=== PATIENT | male | born 1950 | race Caucasian/White ===

== ENCOUNTER 2023-02-10 13:17 | Inpatient (IN) | payer MEDICARE, OTHER, MEDICAID, SELFPAY ==
[2023-02-10] VITALS (9 sets, daily range): BP systolic 94–122; BP diastolic 66–85; PULSE 97–124; RESP 15–20; TEMP 36.4–36.6; O2SAT 95–100
--- NOTE | ~2023-02-10 | CT_ITS ---
EXAMINATION: CT abdomen pelvis w con DATE: 02/10/2023 15:59 INDICATION: Abdominal pain TECHNIQUE: Computed tomography (CT) of the abdomen and pelvis was performed with 100 cc Omnipaque 350 intravenous contrast. The dose-length product was 1561.69 mGy-cm. Automated exposure control and ite rative reconstruction technique were employed. COMPARISON: CT dated 03/10/2018. FINDINGS: Lung bases are unremarkable. There is extensive bilateral pulmonary embolism with large cintia t burden involving the main and lobar pulmonary arteries. No significant pleural or pericardial effus ion. There is a laparoscopic adjustable gastric band. Fatty infiltration of the liver. The spleen, pa ncreas, adrenal glands are unremarkable. There is bilateral renal cortical thinning. There are bilate ral renal cysts, largest in the right kidney measuring 3.3 cm. Status post cholecystectomy. There is atherosclerosis of the aorta without aneurysm. Nonobstructive bowel gas pattern. Moderate retained fe césar material in the distal colon and rectum with fecal impaction of the rectum. No lymphadenopathy. N o free air or free fluid. 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 There is severe thoracic and lumbar spondylosis. Small amount of ascites in the upper abdomen. IMPRESSION: 1. Bilateral pulmonary embolism, large thrombus burden. 2: Fecal impaction of the rectum. Dr. Sabas Alanis discussed with Dr. Maykel Bhatt MD at 02/10/2023 16:15 CDT. Reviewed, dictated and finalized at location B.
--- NOTE | ~2023-02-10 | XR_ITS ---
EXAMINATION: XR chest 1V portable DATE: 02/10/2023 14:13 INDICATION: Shortness of breath. TECHNIQUE: A single frontal view of the chest was obtained. COMPARISON: Chest 2 views 08/01/2015, CT abdomen and pelvis 03/10/2018 FINDINGS: There is no pneumonia, pleural effusion, or pneumothorax. The heart size is normal. Median sternotomy wires are noted. IMPRESSION: 1. No acute cardiopulmonary disease. Reviewed, dictated and finalized at location A.
--- NOTE | ~2023-02-10 | US_ITS ---
EXAMINATION: US venous doppler [facility] DATE: 02/10/2023 19:09 INDICATION: PE . TECHNIQUE: Grayscale images without and with compression and Doppler images of the bilateral lower ex tremity veins were obtained. COMPARISON: None FINDINGS: Acute DVT is seen in the right distal superficial femoral vein, popliteal vein, and posterior tibial vein. The right common femoral vein, profunda (deep) femoral vein, proximal and mid superficial femor al vein, peroneal vein, gastrocnemius vein, and greater saphenous vein are patent. The left common femoral vein, profunda (deep) femoral vein, femoral vein, popliteal vein, peroneal v ein, posterior tibial veins, gastrocnemius vein, and greater saphenous vein are patent. IMPRESSION: 1. Acute DVT in the right distal superficial femoral, popliteal, and posterior tibial veins. 2. Otherwise patent bilateral lower extremity veins. No evidence of deep venous thrombosis. Reviewed, dictated and finalized at location K.
--- NOTE | ~2023-02-10 | US_ITS ---
EXAMINATION: US abdomen limited DATE: 02/11/2023 09:27 INDICATION: Abnormal liver function tests. TECHNIQUE: Multiple grayscale and Doppler ultrasound images of the abdomen were obtained. COMPARISON: CT abdomen and pelvis 02/10/2023 FINDINGS: The visualized portions of the head and body of the pancreas are normal. The liver is robin l without focal lesion. No liver surface nodularity. There is normal flow in main portal vein. There are changes of cholecystectomy. The common duct is normal and measures 3 mm. IMPRESSION: 1. Normal right upper quadrant ultrasound status post cholecystectomy. Reviewed, dictated and finalized at location A.
--- NOTE | ~2023-02-10 | CT_ITS ---
CT head without contrast Indication: Headache Technique: Serial scans were obtained through the brain without the administration of contrast. Dose reduction technique was used on this scan by utilizing automated exposure control and iterative recon struction technique. The dose-length product (DLP) was 756.67 mGy-cm. Findings: There is no evidence of intracranial hemorrhage, mass lesion, or acute infarct. There is fo césar right frontal lobe encephalomalacia. The ventricles and subarachnoid spaces are dilated, consiste nt with mild atrophy. Low attenuation regions are seen within the periventricular white matter bilat erally, likely representing changes from chronic microvascular ischemic disease. There is no evidence of edema, mass effect or midline shift. The visualized paranasal sinuses and mastoid air cells are clear. Impression: No intracranial hemorrhage, mass, or acute infarct. Focal, chronic right frontal lobe encephalomalacia. Atrophy and chronic white matter changes, as above. Reviewed, dictated and finalized at [facility]. Impression: No intracranial hemorrhage, mass, or acute infarct. Focal, chronic right frontal lobe encephalomalacia. Atrophy and chronic white matter changes, as above.
--- NOTE | 2023-02-10 13:17 | ECG_ITS ---
Measurements Intervals [place] Rate: 126 P: 89 UT: 157 QRS: 13 QRSD: 125 T: -2 QT: 298 QTc: 431 Interpretive Statements SINUS OR ECTOPIC ATRIAL TACHYCARDIA RIGHT BUNDLE BRANCH BLOCK BASELINE ARTIFACT- I, II, III, AVR, AVL, AVF ABNORMAL ECG NO PREVIOUS ECG AVAILABLE FOR COMPARISON Electronically Signed On 02-10-2023 13:27:42 CDT by Wei Cannon D.O.
[2023-02-10] MEDS: SODIUM CHLORIDE 0.9% IV 1,000 ML 999 ML IV CONT ×2 (13:49→19:34)
--- NOTE | 2023-02-10 13:54 | ED.GENADULT ---
HPI - General Adult General Chief complaint: Dizziness Stated complaint: dizzy, low BP, increased HR Time Seen by Provider: 02/10/23 13:20 History of Present Illness HPI narrative: Patient is a 72-year-old male who presents to the ER from his assisted with hypotension and hypoxia. New findings today. No reports of recent illness or fever. Patient oriented x2 due to his dementia. Currently systolic blood pressures in the 70s and he is tachycardic. He is also hypoxic and requiring a couple liters of oxygen. He has no abnormal lung sounds. Related Data Allergies Allergy/AdvReac Type Severity Reaction Status Date / Time niacin Allergy Mild MUSCLE PAIN Verified 03/10/18 14:33 morphine Allergy Unknown Verified 03/10/18 14:33 Htvyuzj-EMO-LwV Reductase Allergy Unknown Other Verified 03/10/18 14:33 Inhibitor [Hzzdubw-Zjm-Tdh Reductase Inhibitor] Review of Systems Review of Systems: ROS unobtainable: Yes unobtainable due to medical condition PMFSH Past Medical History Medical History (Updated 02/10/23 @ 18:18 by Maykel Bhatt MD) Anxiety Atrial fibrillation Coronary artery disease Depression Hypercholesterolemia Surgical History Surgical History (Updated 02/10/23 @ 14:05 by Maykel Bhatt MD) History of knee replacement, total History of laparoscopic adjustable gastric banding History of percutaneous coronary intervention Hx of CABG Exam Narrative: GENERAL: Ill-appearing, well-nourished, and in no acute distress. HEAD: Normocephalic, atraumatic. EYES: PERRL and EOMI. ENT: Mucous membranes moist. NECK: Supple. CHEST: Clear to auscultation. No respiratory distress. HEART: Regular rate and rhythm. Normal peripheral pulses. ABDOMEN: Soft, nontender, nondistended. EXTREMITIES: Normal range of motion. 2+ edema. SKIN: Warm, dry, no rash. NEURO: Alert and oriented x2. PSYCH: Normal mood and affect. Course Course Emergency Course: Patient's at bedside. She has been informed of the serious of patient's condition and educated on need for heparinization. After long discussion she does want him to receive treatment but she does not want him to have any invasive procedures or aggressive interventions. She does not want him to have chest compressions or to be placed on a ventilator. Patient's blood pressure is responsive to IV fluid. He is not requiring large amounts of supplemental O2. Patient has been accepted to the hospitalist service. Vital Signs Vital signs: Vital Signs Temperature 97.6 F 02/10/23 13:22 Pulse Rate 124 H 02/10/23 13:22 Respiratory Rate 17 02/10/23 13:22 Blood Pressure 104/72 02/10/23 13:22 Pulse Oximetry 95 02/10/23 13:22 Oxygen Delivery Nasal Cannula 02/10/23 13:22 Oxygen Flow Rate 2 02/10/23 13:22 Temperature 97.6 F 02/10/23 13:22 Pulse Rate 114 H 02/10/23 17:50 Respiratory Rate 20 02/10/23 17:50 Blood Pressure 111/83 02/10/23 17:50 Pulse Oximetry 98 02/10/23 17:50 Oxygen Delivery Nasal Cannula 02/10/23 13:22 Oxygen Flow Rate 2 02/10/23 13:22 Medical Decision Making Vital Signs Vital Signs: Vital Signs Temperature 97.6 F 02/10/23 13:22 Pulse Rate 124 H 02/10/23 13:22 Respiratory Rate 17 02/10/23 13:22 Blood Pressure 104/72 02/10/23 13:22 Pulse Oximetry 95 02/10/23 13:22 Oxygen Delivery Nasal Cannula 02/10/23 13:22 Oxygen Flow Rate 2 02/10/23 13:22 Temperature 97.6 F 02/10/23 13:22 Pulse Rate 114 H 02/10/23 17:50 Respiratory Rate 20 02/10/23 17:50 Blood Pressure 111/83 02/10/23 17:50 Pulse Oximetry 98 02/10/23 17:50 Oxygen Delivery Nasal Cannula 02/10/23 13:22 Oxygen Flow Rate 2 02/10/23 13:22 Lab Data 02/10/23 17:00 02/10/23 14:05 Labs: Lab Results 02/10/23 02/10/23 02/10/23 Range/Units 14:05 14:06 17:00 WBC 7.4 7.6 (4.5-10.0) K/mm3 RBC 4.32 L 4.67 (4.6-6.20) M/mm3 Hgb 13.8 L 14.7
[2023-02-10 14:20] LABS: Basophils Percent Auto 0.3 % (0.2-1.2); Hematocrit 41.4 % (42.0-52.0); Hemoglobin 13.8 g/dL (14.0-18.0); Immature Granulocyte Absolute 0.05 K/mm3 (0.00-0.031); Immature Granulocyte Percent A 0.7 % (0-0.5); Lymphocytes Absolute Auto 0.93 K/mm3 (0.9-3.2); Lymphocytes Percent Auto 12.7 % (18.3-44.2); Mean Corpuscular HGB Conc 33.3 g/dl (32-36); Mean Corpuscular Hemoglobin 31.9 pg (26-34); Mean Corpuscular Volume 95.8 fl (80-100); Mean Platelet Volume 10.4 fl (7.4-10.4); Monocytes Absolute Auto 0.8 K/mm3 (0.1-0.6); Monocytes Percent Auto 11.2 % (2.6-8.5); Neutrophils Absolute Auto 5.5 K/mm3 (1.3-6.7); Neutrophils Percent Auto 75.1 % (45.5-73.1); Platelet Count Result 187 k/mm3 (150-375); Red Blood Count 4.32 M/mm3 (4.6-6.20); White Blood Count 7.4 K/mm3 (4.5-10.0)
[2023-02-10 14:31] LABS: Alanine Aminotransferase 315 U/L (6-50); Albumin Level 3.6 g/dL (3.5-5.1); Alkaline Phosphatase 109 U/L (38-126); Anion Gap 8 mmol/L (8-16); Aspartate Amino Transferase 491 U/L (17-59); Bilirubin,Total 0.6 mg/dL (0.2-1.3); Blood Urea Nitrogen 29 mg/dL (9-20); Calcium 8.3 mg/dL (8.4-10.2); Carbon Dioxide 28 mmol/L (22-30); Chloride 103 mmol/L (98-107); Estimated CRCL calculation 62 ml/min; Estimated Glomerular Filt Rate 60; Glucose 250 mg/dL (65-110); Lactic Acid Reflex 4.4 mmol/L (0.7-2.0); Potassium 5.1 mmol/L (3.4-5.0); Sodium 139 mmol/L (137-145)
[2023-02-10 14:56] LABS: Influenza A QL RT-PCR Negative (Negative); Influenza B QL RT-PCR Negative (Negative); SARS-CoV-2 RNA PCR Negative (Negative)
[2023-02-10 14:59] LABS: Appearance Urine Cloudy (Clear); Bacteria Urine None Seen /hpf; Bilirubin Urine 1+ (Negative); Blood Urine Negative (Negative); Color Urine Dark Yellow (Yellow); Glucose Urine UA Negative (Negative); Hyaline Casts Urine Present /lpf; Ketones Urine Trace mg/dL (Negative); Leukocyte Esterase Ur Negative LEU/UL (Negative); Nitrate Urine Negative (Negative); Non Pathogenic Casts >20; Protein Urine 1+ mg/dL (Negative); RBC Urine 0-2 /hpf (0-2); Specific Grav Ur 1.021 (1.001-1.035); Squamous Epithelial Cell Urine Occasional /hpf (Few); WBC Urine 0-5 /hpf; pH Urine 5.5 (5.0-9.0)
[2023-02-10 15:00] LABS: Add Urine Microscopic? YES
[2023-02-10] MEDS: HEPARIN SODIUM 5,000 UNITS/ML VIAL 7000 UNITS IV PUSH (16:34)
[2023-02-10] MEDS: HEPARIN SOD/D5W 100 UNITS/ML 25,000 UNITS/250 ML BAG 15 UNITS IV CONT (16:35)
[2023-02-10 17:01] LABS: INR 1.3; Prothrombin Time 16.6 Seconds (11.1-14.7)
[2023-02-10 17:02] LABS: Partial Thromboplastin Time 30.4 SECONDS (22.3-36.8)
[2023-02-10 17:05] LABS: Basophils Percent Auto 0.3 % (0.2-1.2); Hematocrit 44.9 % (42.0-52.0); Hemoglobin 14.7 g/dL (14.0-18.0); Immature Granulocyte Absolute 0.04 K/mm3 (0.00-0.031); Immature Granulocyte Percent A 0.5 % (0-0.5); Lymphocytes Absolute Auto 1.01 K/mm3 (0.9-3.2); Lymphocytes Percent Auto 13.3 % (18.3-44.2); Mean Corpuscular HGB Conc 32.7 g/dl (32-36); Mean Corpuscular Hemoglobin 31.5 pg (26-34); Mean Corpuscular Volume 96.1 fl (80-100); Mean Platelet Volume 10.5 fl (7.4-10.4); Monocytes Absolute Auto 0.8 K/mm3 (0.1-0.6); Neutrophils Absolute Auto 5.7 K/mm3 (1.3-6.7); Neutrophils Percent Auto 75.9 % (45.5-73.1); Platelet Count Result 194 k/mm3 (150-375); Red Blood Count 4.67 M/mm3 (4.6-6.20); Red Cell Distribution Width 14.3 % (11.5-14.5); White Blood Count 7.6 K/mm3 (4.5-10.0)
[2023-02-10 17:17] LABS: Reflex Lactic Acid Yes or No Add Lactic
[2023-02-10 17:52] LABS: NT Pro B Type Natriuretic Pept 1520 pg/mL (19.9-100)
--- NOTE | 2023-02-10 18:51 | PM.IMHP ---
H&P: HPI History of Present Illness Date/Time: 02/10/23 17:45 Chief Complaint: Low blood pressure and oxygen saturations. Narrative: This is a 72-year-old male with history of dementia, congestive heart failure, coronary artery disease, hypertension, hyperlipidemia, and sleep apnea who presented to the emergency department via EMS from [facility] for evaluation of low blood pressure and oxygen saturations. The patient is not a reliable historian and a majority the following history is obtained from his and a review of his electronic medical records. He has apparently been complaining of weakness over the last several days and this morning he had abnormal vital signs to include an SpO2 of 80% on room air and a blood pressure of 75/60. EMS was summoned on arrival to the ED his SpO2 was 95% on 2 L. Blood pressure was as low as 94/76 and it has responded well to 2 L of IV fluids. His abdomen was tender on exam and a CT of the abdomen and pelvis was ordered which showed bilateral pulmonary embolism with a large thrombus burden in addition to fecal impaction of the rectum. ED physician spoke with the patient's and after long discussions she wanted him to receive heparin but did not want him to have any invasive procedures or aggressive interventions. Specifically she stated she did not want him to have chest compressions or to be placed on a ventilator however she revoked that upon leaving the hospital for the evening. At the time my evaluation the patient does not have any specific complaints. He does not really remember why he was brought here today and tells me came to the hospital ?to get checked out.? He denies feelings of lightheadedness, dizziness, pain, pleuritic pain, shortness a breath, abdominal pain, nausea, vomiting, and sweats. Review of Systems Review of Systems: Unable to be obtained accurately given his dementia. [facility] Past Medical History Medical History (Updated 02/11/23 @ 01:46 by Yvette Sheldon PA-C) Anxiety Atrial fibrillation Coronary artery disease Depression Heart failure of unknown type Hypercholesterolemia Insulin dependent diabetes mellitus Obstructive sleep apnea Surgical History Surgical History (Updated 02/10/23 @ 14:05 by Maykel Bhatt MD) History of knee replacement, total History of laparoscopic adjustable gastric banding History of percutaneous coronary intervention Hx of CABG Family History Family History Other Unknown family medical history Social History Social History (Updated 02/11/23 @ 21:10 by Yvette Sheldon PA-C) Social History: Surrogate medical decision maker: Christina HyltoncaterinaBeyer, spouse. Code status: Full code. Smoking status: Never smoker Alcohol intake: never Substance use: never Lack of Transportation: No Lack of Food: Never True Current Housing: I Have Housing Concerned About Future Housing: No Difficulty Paying Gas/Electric Bills: No Difficulty Paying for Meds: No Currently Unemployed: No Education: High School Diploma/GED Difficulty w/ Childcare or Family Care: No Spiritual care concerns: No Meds Home Medications and Allergies Home Medications Medication Instructions Recorded Confirmed Type ascorbic acid (vitamin C) 500 mg 500 mg PO DAILY 02/10/23 02/10/23 History tablet brimonidine 0.2 % eye drops 1 drp EACH EYE BID 02/10/23 02/10/23 History clopidogrel 75 mg tablet 75 mg PO DAILY 02/10/23 02/10/23 History divalproex 500 mg tablet,delayed 500 mg PO BID 02/10/23 02/10/23 History release dorzolamide 2 % eye drops 1 drp EACH EYE DAILY 02/10/23 02/10/23 History fenofibrate 50 mg capsule 50 mg PO DAILY 02/10/23 02/10/23 History furosemide 40 mg tablet 40 mg PO DAILY 02/10/23 02/10/23 History haloperidol 5 mg tablet 5 mg PO Q6H PRN psychosis 02/10/23 02/10/23 History insulin aspart U-100 100 unit/mL See Protocol subcut TIDWM
[2023-02-10 19:31] LABS: Lactic Acid 3.4 mmol/L (0.7-2.0)
--- NOTE | 2023-02-10 21:57 | ADMGEN ---
This patient, Gregg Beyer, was admitted to IMU Room 214-01 on 02/10/2023 at 5. Patient/family oriented to hospital policies and general routines including ID bracelet, bed and alarms, visiting hours, pain management, procedures, bathroom and other care routines, personal items, smoking policy, room service/diet, and visiting hours. Information on how to activate the Rapid Response Team has been discussed. Patient/Family are encouraged to report perceived risks to care and to ask questions if they do not understand what they are told or what they should do.
[2023-02-10 22:57] LABS: Partial Thromboplastin Time > 200.0 SECONDS (22.3-36.8)
[2023-02-11] VITALS (15 sets, daily range): BP systolic 91–129; BP diastolic 52–98; PULSE 86–105; RESP 18–20; TEMP 36.3–36.5; O2SAT 92–98
[2023-02-11 06:08] LABS: Basophils Percent Auto 0.3 % (0.2-1.2); Eosinophils Percent Auto 0.2 % (0-4.4); Hematocrit 37.8 % (42.0-52.0); Hemoglobin 12.5 g/dL (14.0-18.0); Immature Granulocyte Absolute 0.03 K/mm3 (0.00-0.031); Immature Granulocyte Percent A 0.5 % (0-0.5); Lymphocytes Percent Auto 25.1 % (18.3-44.2); Mean Corpuscular HGB Conc 33.1 g/dl (32-36); Mean Corpuscular Hemoglobin 30.9 pg (26-34); Mean Corpuscular Volume 93.6 fl (80-100); Mean Platelet Volume 10.8 fl (7.4-10.4); Monocytes Absolute Auto 0.6 K/mm3 (0.1-0.6); Monocytes Percent Auto 9.1 % (2.6-8.5); Neutrophils Absolute Auto 4.1 K/mm3 (1.3-6.7); Neutrophils Percent Auto 64.8 % (45.5-73.1); Platelet Count Result 190 k/mm3 (150-375); Red Blood Count 4.04 M/mm3 (4.6-6.20); Red Cell Distribution Width 14.2 % (11.5-14.5); White Blood Count 6.4 K/mm3 (4.5-10.0)
[2023-02-11 06:19] LABS: Partial Thromboplastin Time 133.4 SECONDS (22.3-36.8)
[2023-02-11 06:21] LABS: Lactic Acid Reflex 1.8 mmol/L (0.7-2.0)
[2023-02-11 06:25] LABS: Alanine Aminotransferase 620 U/L (6-50); Alkaline Phosphatase 98 U/L (38-126); Anion Gap 6 mmol/L (8-16); Bilirubin,Total 0.5 mg/dL (0.2-1.3); Blood Urea Nitrogen 31 mg/dL (9-20); Calcium 7.8 mg/dL (8.4-10.2); Carbon Dioxide 26 mmol/L (22-30); Chloride 105 mmol/L (98-107); Estimated CRCL calculation 103 ml/min; Estimated Glomerular Filt Rate > 60; Glucose 184 mg/dL (65-110); Magnesium 2.2 mg/dL (1.6-2.3); Potassium 4.7 mmol/L (3.4-5.0); Sodium 137 mmol/L (137-145)
[2023-02-11 06:28] LABS: Hemoglobin A1C 6.8 % (<5.7)
[2023-02-11 06:47] LABS: Aspartate Amino Transferase 909 U/L (17-59)
[2023-02-11 07:43] LABS: Glucose Point of Care 183 mg/dl (65-105)
--- NOTE | 2023-02-11 08:00 | ECHO_ITS ---
Patient Info Name: Gregg Beyer Age: 72 years : 1950 Gender: Male Ht: 71 in Wt: 238 lbs BSA: 2.36 m2 HR: 99 bpm BP: 129 / 87 mmHg Heart Rhythm: Tachycardia Technical Quality: Fair Exam Date: 02/11/2023 3:35 PM Exam Location: [facility] Pulmonary Exam Room: 214 Patient Status: Inpatient Admit Date: 02/10/2023 Staff Ordering Physician: Yvette Sheldon PA-C Promotional Marketing Analyst: Nicole Fritz RDCS Attending Provider: Bobby Green MD Referring Physician: Pito HECK; Exam Type: CA echo doppler color flow Study Info Indications - PULM EMBOLISM Complete two-dimensional, color flow and Doppler transthoracic echocardiogram is performed. Summary 1. Complete two-dimensional, color flow and Doppler transthoracic echocardiogram is performed. 2. Left ventricular chamber dimension is normal. 3. Left ventricular systolic function is mildly reduced, estimated at 40-45%. 4. The left ventricular diastolic function is grade I diastolic dysfunction. 5. Right ventricular chamber dimension is severely enlarged. 6. Right ventricular systolic function is reduced. 7. Flattening of the septum in diastole and systole consistent with right ventricular volume and pressure overload. 8. Right atrial chamber dimension is severely enlarged. 9. There is mild tricuspid valve regurgitation. Left Ventricle Left ventricular chamber dimension is normal. Left ventricular systolic function is mildly reduced, estimated at 40-45%. There is no increased left ventricular wall thickness. The left ventricular diastolic function is grade I diastolic dysfunction. Right Ventricle Flattening of the septum in diastole and systole consistent with right ventricular volume and pressure overload. Right ventricular chamber dimension is severely enlarged. Right ventricular systolic function is reduced. Left Atria Left atrial chamber dimension is normal. Right Atria Right atrial chamber dimension is severely enlarged. Atrial Septum Intact interatrial septum visualized by color flow imaging. Aortic Valve The aortic valve is probable trileaflet. There is no aortic valve stenosis. There is no aortic valve regurgitation. There is mild aortic valve calcification. Pulmonic Valve The pulmonic valve is not well visualized. Mitral Valve There is trace mitral valve regurgitation. Tricuspid Valve There is mild tricuspid valve regurgitation. Pericardium/Pleural There is no pericardial effusion. Inferior Vena Cava Inferior vena cava is not well visualized. Aorta The aortic root size at the sinus of Valsalva is normal. Left Ventricular Outflow Tract Name Value Normal LVOT 2D LVOT Diameter 2.2 cm LVOT Doppler LVOT Peak Gradient 3 mmHg LVOT Mean Gradient 2 mmHg LVOT VTI 14 cm LVOT VTI/AV VTI Ratio 0.9 LVOT Stroke Volume 50 ml LVOT CO 16.2 l/min LVOT CI 6.9 l/min/m2 Pulmonic Valve Name Value
[2023-02-11] MEDS: BRIMONIDINE TARTRATE 0.2% OP SOLN 5 ML BTL 1 DROP EACH EYE ×2 (09:40→16:51)
[2023-02-11] MEDS: DIVALPROEX SODIUM DR 250 MG TABEC 500 MG PO ×2 (09:41→16:52)
[2023-02-11] MEDS: ASCORBIC ACID 500 MG TABLET PO (09:41)
[2023-02-11] MEDS: DORZOLAMIDE HCL 2% OPHTH DROPS 1 DROP EACH EYE (09:41)
[2023-02-11] MEDS: PANTOPRAZOLE 40 MG TABLET PO ×2 (09:42→16:54)
[2023-02-11] MEDS: risperiDONE 1 MG TABLET PO (09:42)
[2023-02-11] MEDS: FENOFIBRATE,MICRONIZED 48 MG TABLET PO (09:42)
[2023-02-11] MEDS: VENLAFAXINE HCL XR 37.5 MG CAP PO (09:42)
[2023-02-11 10:21] LABS: NT Pro B Type Natriuretic Pept 7060 pg/mL (19.9-100)
--- NOTE | 2023-02-11 11:11 | PM.IMPN ---
Progress Note: A&P Assessment and Plan (1) Bilateral pulmonary embolism: Code(s): I26.99 - Other pulmonary embolism without acute cor pulmonale Status: Acute Assessment and Plan: Imaging shows bilateral pulmonary emboli with large clot burden. As he is now stable he would probably not be a candidate for thrombectomy. We will continue to monitor him closely in IMU for any change in condition. Continue heparin drip. Echo pending (2) Right leg DVT: Code(s): I82.401 - Acute embolism and thrombosis of unspecified deep veins of right lower extremity Status: Acute Assessment and Plan: Plan is as detailed above. Right distal superficial femoral and popliteal and posterior tibial veins. No clot burden proximally noted. Patient is hemodynamically stable not having any leg pain. Continue heparin (3) Hypoxia: Code(s): R09.02 - Hypoxemia Status: Acute Assessment and Plan: Currently requiring 2 L nasal cannula to maintain SpO2 in the mid to upper 90s. Wean as tolerated. (4) Lactic acidosis: Code(s): E87.20 - Acidosis, unspecified Status: Acute Assessment and Plan: Related to tissue hypoperfusion. Repeat lactic acid is improved. No evidence to suggest active infection. (5) Elevated troponin: Code(s): R77.8 - Other specified abnormalities of plasma proteins Status: Acute Assessment and Plan: No acute ST depression or elevation on EKG. Likely these are elevated in the setting of his large clot burden. (6) Fecal impaction: Code(s): K56.41 - Fecal impaction Status: Acute Assessment and Plan: Once more stable an enema would be appropriate. Start MiraLax. monitor (7) Transaminitis: Code(s): R74.01 - Elevation of levels of liver transaminase levels Status: Acute Assessment and Plan: secondary to above. Ultrasound negative. (8) Heart failure of unknown type: Code(s): I50.9 - Heart failure, unspecified Status: Acute Assessment and Plan: Monitor. Complicated by large burden PE. Echo ordered. Hold diuretics. (9) Obstructive sleep apnea: Code(s): G47.33 - Obstructive sleep apnea (adult) (pediatric) Status: Acute Assessment and Plan: CPAP will be provided for the patient to use while hospitalized. (10) Insulin dependent diabetes mellitus: Status: Acute Assessment and Plan: Continue basal insulin. Initiate sliding scale insulin, Accu-Cheks, and hypoglycemic protocol. Check A1c. Subjective Date/time seen: 02/11/23 11:11 Interval history: Patient is breathing much better. Heart rates in the 90s. Respiratory rates 18. Satting 96% plus on 2L. Does not appear to be in respiratory distress. Exam Narrative: General: Moderately ill-appearing gentleman in the semi-[place] position in bed. Weight: 108 kg. BMI: 33.2. HEENT: PERRL, EOMI. Sclera anicteric. Oral mucosa moist. Neck: Supple. No significant JVD. Respiratory: Currently on 2 L nasal cannula with an SpO2 in the mid upper 90s. Respirations are nonlabored. Lungs are clear to auscultation. Cardiovascular: Tachycardic with normal S1-S2. Telemetry shows sinus tach with a rate in the low 100s. Gastrointestinal: Abdomen is soft, nontender, and nondistended with positive bowel sounds. Skin: Warm and dry. Generalized pallor. Extremities: No cyanosis or clubbing. 2-3+ bilateral lower extremity edema, right greater than left. Equivocal Homans sign bilaterally. Radial pulses intact. Pedal pulses difficult to palpate given significant edema. Neurological: Alert and oriented to name, date of , place, and president. He knows he is in the hospital but he does not know why he was brought here today.. Cranial nerves 2-12 are grossly intact. Speech is clear. No facial asymmetry. Generalized weakness without gross focal deficits. Psychiatric: [place]
[2023-02-11 12:41] LABS: Glucose Point of Care 192 mg/dl (65-105)
[2023-02-11 12:42] LABS: Partial Thromboplastin Time 102.5 SECONDS (22.3-36.8)
[2023-02-11] MEDS: ACETAMINOPHEN 325 MG TABLET 650 MG PO (13:28)
[2023-02-11] MEDS: HEPARIN SOD/D5W 100 UNITS/ML 25,000 UNITS/250 ML BAG 10 UNITS IV CONT (15:35)
[2023-02-11 16:26] LABS: Glucose Point of Care 231 mg/dl (65-105)
[2023-02-11] MEDS: INSULIN ASPART (*BKC) 100 UNITS/ML SUB-Q (16:53)
[2023-02-11 19:46] LABS: Partial Thromboplastin Time 96.5 SECONDS (22.3-36.8)
[2023-02-11 21:00] LABS: Glucose Point of Care 191 mg/dl (65-105)
[2023-02-11] MEDS: INSULIN GLARGINE (*BKC) 100 UNITS/ML 50 UNITS SUB-Q (21:06)
[2023-02-11] MEDS: risperiDONE 1 MG TABLET 2 MG PO (21:06)
[2023-02-12] VITALS (16 sets, daily range): BP systolic 98–136; BP diastolic 69–94; PULSE 84–104; RESP 14–22; TEMP 36.2–36.9; O2SAT 94–99
[2023-02-12 05:31] LABS: Partial Thromboplastin Time 58.8 SECONDS (22.3-36.8)
[2023-02-12] MEDS: ACETAMINOPHEN 325 MG TABLET 650 MG PO ×3 (05:45→18:28)
[2023-02-12] MEDS: HEPARIN SODIUM 5,000 UNITS/ML VIAL 3500 UNITS IV PUSH (05:45)
[2023-02-12 07:44] LABS: Glucose Point of Care 152 mg/dl (65-105)
[2023-02-12] MEDS: ASCORBIC ACID 500 MG TABLET PO (08:36)
[2023-02-12] MEDS: FENOFIBRATE,MICRONIZED 48 MG TABLET PO (08:37)
[2023-02-12] MEDS: PANTOPRAZOLE 40 MG TABLET PO ×2 (08:37→16:26)
[2023-02-12] MEDS: DORZOLAMIDE HCL 2% OPHTH DROPS 1 DROP EACH EYE (08:37)
[2023-02-12] MEDS: DIVALPROEX SODIUM DR 250 MG TABEC 500 MG PO ×2 (08:37→16:25)
[2023-02-12] MEDS: VENLAFAXINE HCL XR 37.5 MG CAP PO (08:37)
[2023-02-12] MEDS: risperiDONE 1 MG TABLET PO (08:37)
[2023-02-12] MEDS: BRIMONIDINE TARTRATE 0.2% OP SOLN 5 ML BTL 1 DROP EACH EYE ×2 (08:38→16:26)
[2023-02-12] MEDS: HEPARIN SOD/D5W 100 UNITS/ML 25,000 UNITS/250 ML BAG 12 UNITS IV CONT (11:38)
[2023-02-12] MEDS: HEPARIN SODIUM 5,000 UNITS/ML VIAL 7000 UNITS IV PUSH (12:21)
[2023-02-12] MEDS: HEPARIN SOD/D5W 100 UNITS/ML 25,000 UNITS/250 ML BAG 16 UNITS IV CONT (12:22)
[2023-02-12 12:41] LABS: Glucose Point of Care 178 mg/dl (65-105)
[2023-02-12 16:14] LABS: Glucose Point of Care 125 mg/dl (65-105)
--- NOTE | 2023-02-12 17:28 | WPDPN ---
Progress Note: A&P Assessment and Plan (1) Bilateral pulmonary embolism: Code(s): I26.99 - Other pulmonary embolism without acute cor pulmonale Status: Acute Assessment and Plan: Imaging shows bilateral pulmonary emboli with large clot burden. He was hemodynamically unstable on arrival with hypotension and hypoxia but he has since stabilized and actually looks a lot better. Initially wished for him to be a DNR but she has since revoked that and wants him to be a full code. As he is now stable he would likely not be a candidate for thrombectomy. We will continue to monitor him closely in IMU for any change in condition. Continue heparin drip. Echocardiogram ordered to assess for heart strain as his BNP and troponin are elevated. 02/12/2023 interval history: 72-year-old male presented with hypoxia and hypercapnia is found to have bilateral pulmonary emboli being treated with heparin drip unfortunately patient is unable to provide detailed review of symptom, will continue heparin for 72 hours and switch the patient to oral anticoagulation, to further evaluate patient had a cardiac echo that showed moderately reduced ejection fraction with 45%, patient is found to have right ventricular systolic function reduced and right atrial chamber significantly enlarged suggesting patient had a pulmonary emboli for sometime prior to coming to emergency department, patient remains hemodynamically stable will continue to monitor and further recommendation to follow (2) Right leg DVT: Code(s): I82.401 - Acute embolism and thrombosis of unspecified deep veins of right lower extremity Status: Acute Assessment and Plan: Plan is as detailed above. (3) Hypoxia: Code(s): R09.02 - Hypoxemia Status: Acute Assessment and Plan: Currently requiring 2 L nasal cannula to maintain SpO2 in the mid to upper 90s. Wean as tolerated. (4) Lactic acidosis: Code(s): E87.20 - Acidosis, unspecified Status: Acute Assessment and Plan: Related to tissue hypoperfusion. Repeat lactic acid is improved. No evidence to suggest active infection. (5) Elevated troponin: Code(s): R77.8 - Other specified abnormalities of plasma proteins Status: Acute Assessment and Plan: No acute ST depression or elevation on EKG. Likely these are elevated in the setting of his large clot burden. (6) Fecal impaction: Code(s): K56.41 - Fecal impaction Status: Acute Assessment and Plan: Once more stable an enema would be appropriate. Start MiraLax. (7) Transaminitis: Code(s): R74.01 - Elevation of levels of liver transaminase levels Status: Acute Assessment and Plan: Likely shock liver. Abdominal exam is benign. Repeat in a.m. (8) Heart failure of unknown type: Code(s): I50.9 - Heart failure, unspecified Status: Acute Assessment and Plan: Probable diastolic congestive heart failure. Furosemide on hold given soft blood pressures. Avoid over-hydration. (9) Obstructive sleep apnea: Code(s): G47.33 - Obstructive sleep apnea (adult) (pediatric) Status: Acute Assessment and Plan: CPAP will be provided for the patient to use while hospitalized. (10) Insulin dependent diabetes mellitus: Status: Acute Assessment and Plan: Continue basal insulin. Initiate sliding scale insulin, Accu-Cheks, and hypoglycemic protocol. Check A1c. Subjective Date/time seen: 02/12/23 17:28 Interval history: HPI Narrative: This is a 72-year-old male with history of dementia, congestive heart failure, coronary artery disease, hypertension, hyperlipidemia, and sleep apnea who presented to the emergency department via EMS from [facility] for evaluation of low blood pressure and oxygen saturations. The patient is not a reliable historian and a majority the following history is obtained from his and
[2023-02-12 20:15] LABS: Glucose Point of Care 150 mg/dl (65-105)
[2023-02-12] MEDS: risperiDONE 1 MG TABLET 2 MG PO (20:41)
[2023-02-12] MEDS: INSULIN GLARGINE (*BKC) 100 UNITS/ML 50 UNITS SUB-Q (20:41)
[2023-02-12 20:50] LABS: Partial Thromboplastin Time 163.6 SECONDS (22.3-36.8)
[2023-02-13] VITALS (16 sets, daily range): BP systolic 94–115; BP diastolic 55–77; PULSE 79–97; RESP 16–22; TEMP 35.8–36.5; O2SAT 92–99
[2023-02-13 05:25] LABS: Partial Thromboplastin Time 162.6 SECONDS (22.3-36.8)
[2023-02-13 08:58] LABS: Glucose Point of Care 75 mg/dl (65-105)
[2023-02-13] MEDS: BRIMONIDINE TARTRATE 0.2% OP SOLN 5 ML BTL 1 DROP EACH EYE ×2 (09:00→16:38)
[2023-02-13] MEDS: ASCORBIC ACID 500 MG TABLET PO (09:00)
[2023-02-13] MEDS: DIVALPROEX SODIUM DR 250 MG TABEC 500 MG PO ×2 (09:00→16:38)
[2023-02-13] MEDS: DORZOLAMIDE HCL 2% OPHTH DROPS 1 DROP EACH EYE (09:00)
[2023-02-13] MEDS: risperiDONE 1 MG TABLET PO (09:01)
[2023-02-13] MEDS: PANTOPRAZOLE 40 MG TABLET PO ×2 (09:01→16:38)
[2023-02-13] MEDS: FENOFIBRATE,MICRONIZED 48 MG TABLET PO (09:01)
[2023-02-13] MEDS: VENLAFAXINE HCL XR 37.5 MG CAP PO (09:01)
[2023-02-13] MEDS: HEPARIN SOD/D5W 100 UNITS/ML 25,000 UNITS/250 ML BAG 10 UNITS IV CONT (09:21)
[2023-02-13 12:07] LABS: Glucose Point of Care 150 mg/dl (65-105)
[2023-02-13 12:49] LABS: Partial Thromboplastin Time 105.5 SECONDS (22.3-36.8)
--- NOTE | 2023-02-13 16:59 | WPDPN ---
Progress Note: A&P Assessment and Plan (1) Bilateral pulmonary embolism: Code(s): I26.99 - Other pulmonary embolism without acute cor pulmonale Status: Acute Assessment and Plan: Imaging shows bilateral pulmonary emboli with large clot burden. He was hemodynamically unstable on arrival with hypotension and hypoxia but he has since stabilized and actually looks a lot better. Initially wished for him to be a DNR but she has since revoked that and wants him to be a full code. As he is now stable he would likely not be a candidate for thrombectomy. We will continue to monitor him closely in IMU for any change in condition. Continue heparin drip. Echocardiogram ordered to assess for heart strain as his BNP and troponin are elevated. 02/13/2023 interval history: 72-year-old male presented with hypoxia and hypercapnia is found to have bilateral pulmonary emboli being treated with heparin drip unfortunately patient is unable to provide detailed review of symptom, will continue heparin for 72 hours and switch the patient to oral anticoagulation, to further evaluate patient had a cardiac echo that showed moderately reduced ejection fraction with 45%, patient is found to have right ventricular systolic function reduced and right atrial chamber significantly enlarged suggesting patient had a pulmonary emboli for sometime prior to coming to emergency department, patient remains hemodynamically stable will continue to monitor and further recommendation to follow, patient had complained of headache which is now resolved it to further evaluate patient had a CT scan of the head essentially normal, today will switch over patient to Eliquis and stop heparin. Patient's and daughter are present in the room and gave updates (2) Right leg DVT: Code(s): I82.401 - Acute embolism and thrombosis of unspecified deep veins of right lower extremity Status: Acute Assessment and Plan: Plan is as detailed above. (3) Hypoxia: Code(s): R09.02 - Hypoxemia Status: Acute Assessment and Plan: Currently requiring 2 L nasal cannula to maintain SpO2 in the mid to upper 90s. Wean as tolerated. (4) Lactic acidosis: Code(s): E87.20 - Acidosis, unspecified Status: Acute Assessment and Plan: Related to tissue hypoperfusion. Repeat lactic acid is improved. No evidence to suggest active infection. (5) Elevated troponin: Code(s): R77.8 - Other specified abnormalities of plasma proteins Status: Acute Assessment and Plan: No acute ST depression or elevation on EKG. Likely these are elevated in the setting of his large clot burden. (6) Fecal impaction: Code(s): K56.41 - Fecal impaction Status: Acute Assessment and Plan: Once more stable an enema would be appropriate. Start MiraLax. (7) Transaminitis: Code(s): R74.01 - Elevation of levels of liver transaminase levels Status: Acute Assessment and Plan: Likely shock liver. Abdominal exam is benign. Repeat in a.m. (8) Heart failure of unknown type: Code(s): I50.9 - Heart failure, unspecified Status: Acute Assessment and Plan: Probable diastolic congestive heart failure. Furosemide on hold given soft blood pressures. Avoid over-hydration. (9) Obstructive sleep apnea: Code(s): G47.33 - Obstructive sleep apnea (adult) (pediatric) Status: Acute Assessment and Plan: CPAP will be provided for the patient to use while hospitalized. (10) Insulin dependent diabetes mellitus: Status: Acute Assessment and Plan: Continue basal insulin. Initiate sliding scale insulin, Accu-Cheks, and hypoglycemic protocol. Check A1c. Subjective Date/time seen: 02/13/23 16:59 Interval history: HPI Narrative: This is a 72-year-old male with history of dementia, congestive heart failure, coronary artery disease, hypertension, hyperlipidemia,
[2023-02-13 17:25] LABS: Glucose Point of Care 126 mg/dl (65-105)
[2023-02-13] MEDS: ACETAMINOPHEN 325 MG TABLET 650 MG PO (17:38)
[2023-02-13 20:20] LABS: Glucose Point of Care 146 mg/dl (65-105)
[2023-02-13] MEDS: risperiDONE 1 MG TABLET 2 MG PO (20:58)
[2023-02-13] MEDS: APIXABAN 5 MG TABLET 10 MG PO (20:58)
[2023-02-13] MEDS: INSULIN GLARGINE (*BKC) 100 UNITS/ML 50 UNITS SUB-Q (20:59)
[2023-02-14] VITALS (7 sets, daily range): BP systolic 105–125; BP diastolic 53–86; PULSE 80–97; RESP 18–20; TEMP 36.4–36.9; O2SAT 92–96
[2023-02-14] MEDS: APIXABAN 5 MG TABLET 10 MG PO (08:14)
[2023-02-14] MEDS: risperiDONE 1 MG TABLET PO (08:15)
[2023-02-14] MEDS: DIVALPROEX SODIUM DR 250 MG TABEC 500 MG PO (08:15)
[2023-02-14] MEDS: ASCORBIC ACID 500 MG TABLET PO (08:15)
[2023-02-14] MEDS: DORZOLAMIDE HCL 2% OPHTH DROPS 1 DROP EACH EYE (08:16)
[2023-02-14] MEDS: FENOFIBRATE,MICRONIZED 48 MG TABLET PO (08:16)
[2023-02-14] MEDS: PANTOPRAZOLE 40 MG TABLET PO (08:16)
[2023-02-14] MEDS: BRIMONIDINE TARTRATE 0.2% OP SOLN 5 ML BTL 1 DROP EACH EYE (08:16)
[2023-02-14] MEDS: VENLAFAXINE HCL XR 37.5 MG CAP PO (08:16)
[2023-02-14 08:36] LABS: Glucose Point of Care 77 mg/dl (65-105)
--- NOTE | 2023-02-14 11:15 | PM.DS ---
DS: Admitting Diagnosis Discharge Date 02/14/2023 Admitting Diagnosis Low blood pressure and oxygen saturations. DS: Discharge Diagnosis Discharge Diagnosis (1) Bilateral pulmonary embolism: Code(s): I26.99 - Other pulmonary embolism without acute cor pulmonale Status: Acute Assessment and Plan: Imaging shows bilateral pulmonary emboli with large clot burden. He was hemodynamically unstable on arrival with hypotension and hypoxia but he has since stabilized and actually looks a lot better. Initially wished for him to be a DNR but she has since revoked that and wants him to be a full code. As he is now stable he would likely not be a candidate for thrombectomy. We will continue to monitor him closely in IMU for any change in condition. Continue heparin drip. Echocardiogram ordered to assess for heart strain as his BNP and troponin are elevated. 02/13/2023 interval history: 72-year-old male presented with hypoxia and hypercapnia is found to have bilateral pulmonary emboli being treated with heparin drip unfortunately patient is unable to provide detailed review of symptom, will continue heparin for 72 hours and switch the patient to oral anticoagulation, to further evaluate patient had a cardiac echo that showed moderately reduced ejection fraction with 45%, patient is found to have right ventricular systolic function reduced and right atrial chamber significantly enlarged suggesting patient had a pulmonary emboli for sometime prior to coming to emergency department, patient remains hemodynamically stable will continue to monitor and further recommendation to follow, patient had complained of headache which is now resolved it to further evaluate patient had a CT scan of the head essentially normal, today will switch over patient to Eliquis and stop heparin. Patient's and daughter are present in the room and gave updates (2) Right leg DVT: Code(s): I82.401 - Acute embolism and thrombosis of unspecified deep veins of right lower extremity Status: Acute Assessment and Plan: Plan is as detailed above. (3) Hypoxia: Code(s): R09.02 - Hypoxemia Status: Acute Assessment and Plan: Currently requiring 2 L nasal cannula to maintain SpO2 in the mid to upper 90s. Wean as tolerated. (4) Lactic acidosis: Code(s): E87.20 - Acidosis, unspecified Status: Acute Assessment and Plan: Related to tissue hypoperfusion. Repeat lactic acid is improved. No evidence to suggest active infection. (5) Elevated troponin: Code(s): R77.8 - Other specified abnormalities of plasma proteins Status: Acute Assessment and Plan: No acute ST depression or elevation on EKG. Likely these are elevated in the setting of his large clot burden. (6) Fecal impaction: Code(s): K56.41 - Fecal impaction Status: Acute Assessment and Plan: Once more stable an enema would be appropriate. Start MiraLax. (7) Transaminitis: Code(s): R74.01 - Elevation of levels of liver transaminase levels Status: Acute Assessment and Plan: Likely shock liver. Abdominal exam is benign. Repeat in a.m. (8) Heart failure of unknown type: Code(s): I50.9 - Heart failure, unspecified Status: Acute Assessment and Plan: Probable diastolic congestive heart failure. Furosemide on hold given soft blood pressures. Avoid over-hydration. (9) Obstructive sleep apnea: Code(s): G47.33 - Obstructive sleep apnea (adult) (pediatric) Status: Acute Assessment and Plan: CPAP will be provided for the patient to use while hospitalized. (10) Insulin dependent diabetes mellitus: Status: Acute Assessment and Plan: Continue basal insulin. Initiate sliding scale insulin, Accu-Cheks, and hypoglycemic protocol. Check A1c. DS: Summary Hospital Course Reason for hospitalization: Low blood pressure and oxygen sa
[2023-02-14] MEDS: ACETAMINOPHEN 325 MG TABLET 650 MG PO (11:19)
[2023-02-14 11:41] LABS: Glucose Point of Care 76 mg/dl (65-105)
== END 2023-02-14 15:59 | DRG 176 ==
LOC: ANHED 14:03 → ANHIMU 17:15
PROVIDERS: Chiropractor; Internal Medicine; Physician Assistant; Admitting Provider Internal Medicine; Emergency Provider Emergency Medicine; PCP Internal Medicine; Visit Provider Family Medicine
DX: I26.99 Other pulmonary embolism without acute cor pulmonale (principal); I82.411 Acute embolism and thrombosis of right femoral vein; I82.441 Acute embolism and thrombosis of right tibial vein; I82.431 Acute embolism and thrombosis of right popliteal vein; E87.20 Acidosis, unspecified; I50.32 Chronic diastolic (congestive) heart failure; I11.0 Hypertensive heart disease with heart failure; Z20.822 Contact with and (suspected) exposure to COVID-19; R09.02 Hypoxemia; R06.89 Other abnormalities of breathing; G47.33 Obstructive sleep apnea (adult) (pediatric); I48.91 Unspecified atrial fibrillation; K56.41 Fecal impaction; E11.9 Type 2 diabetes mellitus without complications; E78.00 Pure hypercholesterolemia, unspecified; I25.10 Atherosclerotic heart disease of native coronary artery without angina pectoris; F41.9 Anxiety disorder, unspecified; F32.A Depression, unspecified; F03.90 Unspecified dementia, unspecified severity, without behavioral disturbance, psychotic disturbance, mood disturbance, and anxiety; Z96.659 Presence of unspecified artificial knee joint; R77.8 Other specified abnormalities of plasma proteins; Z95.1 Presence of aortocoronary bypass graft; Z98.84 Bariatric surgery status
CPT/HCPCS: 36415; 70450; 71045; 74177; 76705; 80053; 81001; 82948; 83036; 83605; 83735; 83880; 84443; 84484; 85025; 85610; 85730; 87040; 87636; 93005; 93306; 93970; 94660; 96361; 96365; 99291; A9270; G0378; J1644; J1815; J7030; Q9967